=== PATIENT | female | born 1970 ===

== ENCOUNTER 2021-11-13 22:11 | Emergency (ER) | payer BC, OTHER ==
--- OUTSIDE RECORDS SUMMARY | 2021-11-13 22:16 | XMS REPORT | Continuity of Care Document ---
:1970 Author Organization [facility] t Address [address] [place] [address] Care Team Providers Name Role Phone Kelli PIPER, Roxana Kinney Primary Care Physician [phone] Obdulia Hu MA Attending Clinician Unavailable Jesenia Mcnamara MD Attending Clinician Gena Youssef MA Attending Clinician Unavailable Christopher Willams MD Attending Clinician Diana Ríos MA Attending Clinician Unavailable Maureen Corea MA Attending Clinician Unavailable Terrance Marlow MA Attending Clinician Unavailable ARYAN REDDY Attending Clinician Unavailable Lab, Adc Fam Pob I Attending Clinician Unavailable Tristan Hope Attending Clinician TRISTAN KWONG Attending Clinician Unavailable Doctor Unassigned, [place] Attending Clinician Unavailable CHRISTOPHER WILLAMS Admitting Clinician Unavailable Payers Payer Name Policy Type Policy Number Effective Date Expiration Date S ource Problems Condition Condition Condition Status Onset Resolution Last Treating Co mments Source Name Details Category Date Date Treatment Clinician Date Transamina Transamin Disease Active M ethodi se ase 6-13 st elevation. elevation. 00:00: Ho spita CK 344. CK 344. 00 l GGT GGT normal. normal. 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 00:00: Hospita eyes eyes 00 l Colon Colon Disease Active 2021-0 Methodi cancer cancer 3-10 st screening screening 00:00: Hosp crystal 00 l Esophageal Esophageal Disease Active M ethodi dysphagia dysphagia 05-20 00:00: Hospita 00 l Crohn's Crohn's Disease Active Methodi disease of disease of 06 colon colon 00:00: Hospita without without 00 l complicati complicati on on Uveitis of Uveitis of Disease Active M ethodi both eyes both eyes 05-23 st 00:00: Hospita 00 l Pseudomona Pseudomona Disease Active 2017-03 M ethodi s s 1 st infection infection 00:00: Hosp crystal 00 l Keratoconu Keratoconu Disease Active M ethodi s of both s of both 09-20 eyes eyes 00:00: Hospita 00 l Nausea Nausea Disease Active Methodi 09-20 00:00: Hospita 00 l Orthostati Orthostati Disease Active M ethodi c c 04-19 hypotensio hypotensio 00:00: Ho spita n n 00 l Intractabl Intractabl Disease Active 2016-03 M ethodi e migraine e migraine 04-10 with aura with aura 00:00: Hosp crystal without without 00 l status status migrainosu migrainosu s s Memory Memory Disease Active 2016-03 Methodi loss loss 04-10 00:00: Hospita 00 l Altered Altered Disease Active 2016-03 Methodi mental mental 04-10 status status 00:00: Hospita 00 l Other Other Disease Active Methodi spondylosi spondylosi 07-20 s with s with 00:00: Hospita radiculopa radiculopa 00 l thy, thy, lumbar lumbar region region Sacral Sacral Disease Active Methodi back pain back pain 07-20 st 00:00: Hospita 00 l Raynaud's Raynaud's Disease Active Met hodi phenomenon phenomenon 05-05 without without 00:00: Hospita gangrene gangrene 00 l Headache, Headache, Disease Active 2015-03 Met hodi chronic chronic 2-15 st daily daily 00:00: Hospita 00 l Paresthesi Paresthesi Disease Active 2015-03 M ethodi a a 04-27 st 00:00: Hospita 00 l 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 2-15 st 00:00: Hospita 00 l Chronic Chronic Disease Active Methodi diarrhea diarrhea 815 st 00:00: Hospita 00 l Midline Midline Disease Active Methodi low back low back 8-15 st pain pain 00:00: Hospita without without 00 l sciatica sciatica Arthralgia Arthralgia Disease Active M ethodi 815 st 00:00: Hospita 00 l Weight Weight Disease Active Methodi loss loss 815 st 00:00: Hospita 00 l Bilateral Bilateral Disease Active Met hodi conjunctiv conjunctiv 815 st itis itis 00:00: Hospita 00 l Granuloma Granuloma Disease Active Met hodi annulare annulare 815 st 00:00: Hospita 00 l Abdominal Abdominal Disease Active Uni vers pain pain 11-19 ity of 00:00: [place] 00 [facility] Allergies, Adverse Reactions, Alerts Allergy Allergy Status Severity Reaction(s) Onset Inactive Treating Comm ents Source Name Type Date Date Clinician Sulfa Propensi Active 2016-03 Methodi (Sulfona ty to 04-10 st mide adverse 00:00: Hospita Antibiot reaction 00 l ics) s to drug Codeine Propensi Active Swelling Metho di ty to 05-04 st adverse 00:00: Hospita reaction 00 l s to drug Prochlor Propensi Active Rash Method i perazine ty to 15 st adverse 00:00: Hospita reaction 00 l s to drug Penicill Propensi Active Rash Method i ins ty to 15 st adverse 00:00: Hospita reaction 00 l s to drug PENICILL DRUG Active High Swelling Univer s IN INGREDI 11-19 ity of 00:00: [place] 00 [facility] PROCHLOR DRUG Active Hallucinates Un gabi PERAZINE INGREDI 11-19 ity of EDISYLAT 00:00: [place] E 00 Medical Branch SULFA Drug Active Rash Univers (SULFONA Class 11-19 ity of MIDE 00:00: [place] ANTIBIOT 00 Medical ICS) Branch Prochlor Propensi Active Hallucinatio Univers perazine ty to ns 11-19 ity of Edisylat adverse 00:00: [place] e reaction 00 Medical s Branch Penicill Propensi Active Swelling Univ ers in ty to 11-19 ity of adverse 00:00: [place] reaction 00 Medical s Branch Sulfa Propensi Active Rash Univers (Sulfona ty to 11-19 ity of mide adverse 00:00: [place] Antibiot reaction 00 Medica l ics) s Branch Family History Family Member Diagnosis Comments Start Date Stop Date Source Natural father Cancer [facility] Natural father Clotting disorder [facility] Natural father Early [facility] Natural father Seizures [facility] Natural father Vision loss [facility] Maternal COPD [facility] Maternal Heart disease [facility] Maternal Hypertension [facility] Maternal Dementia [facility] Maternal Heart disease [facility] Maternal Stroke [facility] Natural mother Diabetes [facility] Natural mother Miscarriages / Method ist Stillbirths [facility] Paternal Cancer [facility] Paternal Heart disease [facility] Social History Social Habit Start Date Stop Date Quantity Comments Source History of tobacco Current smoker Me [facility]odist use Hospital Exposure to Not sure [facility]-CoV-2 (event) [place] [facility] Alcohol intake 2020-07-22 2020-07-22 Ex-drinker [facility] 00:00:00 00:00:00 (finding) Hospital Cigarettes smoked 2017-02-08 2017-02-[address] current (pack per 00:00:00 00:00:00 Hospita l day) - Reported Cigarette 2017-02-08 2017-02-08 [facility] pack-years 00:00:00 00:00:00 Hospital Alcohol Comment 2017-02-08 2017-02-08 once a month Methodi st 00:00:00 00:00:00 Hospital Tobacco use and 2014-11-19 2014-11-19 Current user Univers ity of exposure 00:00:00 00:00:00 [facility] Sex Ass[birth year] At [birth year] [facility] 00:00:00 00:00:00 Hospital Smoking Status Start Date Stop Date Source Ex-smoker 2017-02-08 00:00:00 2017-02-08 00:00:00 [facility] Current every day 2014-11-19 00:00:00 [facility] [place] smoker Medical Branch Medications Ordered Filled Start Stop Current Ordering Indication Dosage Frequency Signature Comments Components Source Medication Medication Date Date Medication? Clinician (SIG) Name Name modafiniL 2031- Yes [id number] 200mg QD Take 1 Methodi (PROVIGIL) 10-15 08-[address] 200 MG 00:00: 04:59 (200 mg Hospita tablet 00 :00 total) by l mouth every morning. infliximab Yes Infuse Metho di (REMICADE [address] IV) 11:21: venous Hospita 18 catheter. l celecoxib Yes [id number] 200mg Q.5D Take 1 M ethodi (CeleBREX) 07-[address] 200 MG 00:00: (200 mg Hospita capsule 00 total) by l mouth 2 (two) times a day. syringe 2022- No [id number] .6mL Q7D 0.6 mL Met hodi with needle 07-[address] 1 mL 27 x 00:00: 04:59 week. Hospit a /" 00 :00 l syringe folic acid 2022- No [id number] 1mg QD Take 1 Methodi (FOLVITE) 1 07-02- tablet (1 st MG tablet 00:00: 04:59 mg total) Ho spita 00 :00 by mouth l daily. methotrexat 2022- No [id number] 15mg Q7D Inject 0.6 Methodi e PF 25 07-02-23 mL ([address] mg/mL chemo 00:00: 04:59 total) Hos pito syringe 00 :00 under the l skin once a week. 0.6cc SQ Weekly predniSONE 2022- No [id number] TAKE ONE Methodi (DELTASONE) 07-02 03-[address] 5 mg tablet 00:00: 04:59 TABLETS BY Hospita 00 :00 MOUTH l EVERY MORNING DIRECTED DURING OFFICE VISIT modafiniL 2021- No [id number] 200mg QD Take 1 Methodi (PROVIGIL) 07-02-[address] 200 MG 00:00: 00:00 (200 mg Hospita tablet 00 :00 total) by l mouth every morning. modafiniL 2021- No [id number] 200mg QD Take 1 Methodi (PROVIGIL) 07-[address] 200 MG 00:00: 00:00 (200 mg Hospita tablet 00 :00 total) by l mouth every morning. pantoprazol Yes 1 po bid Me thodi e 4-18 st (PROTONIX) 00:00: Hospita 40 MG EC 00 l tablet syringe 2021- No [id number] .6mL Q7D 0.6 mL Met hodi with needle 06-[address] 1 mL 27 x 00:00: 00:00 week. Hospit a 03/14" 00 :00 l syringe folic acid 2021- No [id number] 1mg QD Take 1 Methodi (FOLVITE) 1 06-16 tablet (1 st MG tablet 00:00: 00:00 mg total) Ho spita 00 :00 by mouth l daily. methotrexat 2021- No [id number] 15mg Q7D Inject 0.6 Methodi e PF 25 06-16 mL ([address] mg/mL chemo 00:00: 00:00 total) Hos pito syringe 00 :00 under the l skin once a week. 0.6cc SQ Weekly predniSONE 2021- No [id number] TAKE ONE Methodi (DELTASONE) 06-[address] 5 mg tablet 00:00: 00:00 TABLETS BY Hospita 00 :00 MOUTH l EVERY MORNING DIRECTED DURING OFFICE VISIT modafiniL 2021- No [id number] 200mg QD Take 1 Methodi (PROVIGIL) 06-[address] 200 MG 00:00: 00:00 (200 mg Hospita tablet 00 :00 total) by l mouth every morning. celecoxib 2021- No [id number] 200mg Q.5D Take 1 Methodi (CeleBREX) 06-[address] 200 MG 00:00: 00:00 (200 mg Hospita capsule 00 :00 total) by l mouth 2 (two) times a day. pantoprazol 2021- No 1 po bid M ethodi e 06-09- st (PROTONIX) 00:00: 00:00 Hospit a 40 MG EC 00 :00 l tablet ustekinumab 2021- No INJECT 1 M ethodi (Stelara) 03-15 02-08 ML ([address] 90 mg/mL 00:00: 00:00 TOTAL) Hospit a injection 00 :00 UNDER THE l SKIN EVERY TWO MONTHS diflupredna 2020-03 Yes INSTILL 1 M ethodi te 2-[address] (DUREZOL) 00:00: LEFT EYE Hosp crystal 0.05 % 00 FOUR TIMES l drops DAILY celecoxib 2020-03- No 200mg Q.5D Take 1 Meth sugey (CeleBREX) 04-[address] 200 MG 00:00: 00:00 (200 mg Hospita capsule 00 :00 total) by l mouth 2 (two) times a day. celecoxib 2020-03- No 200mg Q.5D Take 1 Meth sugey (CeleBREX) 04-15- capsule st 200 MG 00:00: 00:00 (200 mg Hospita capsule 00 :00 total) by l mouth 2 (two) times a day. Stelara 90 2020-03- No INJECT 1 Me thodi mg/mL 03-17- ML ([address] injection 00:00: 00:00 TOTAL) Hospi ta 00 :00 UNDER THE l SKIN EVERY TWO MONTHS syringe 2020-03- No .6mL Q7D 0.6 mL Methodi with needle 06-[address] 1 mL 27 x 00:00: 00:00 week. Hospit a /2" 00 :00 l syringe folic acid 2020-03- No [id number] 1mg QD Take 1 Methodi (FOLVITE) 1 0- tablet (1 st MG tablet 00:00: 00:00 mg total) Ho spita 00 :00 by mouth l daily. methotrexat 2020-03- No 15mg Q7D Inject 0.6 Methodi e PF 25 0-20 -29 mL ([address] mg/mL chemo 00:00: 00:00 total) Hos pito syringe 00 :00 under the l skin once a week. 0.6cc SQ Weekly predniSONE 2020-03- No TAKE ONE Me thodi (DELTASONE) 006-[address] 5 mg tablet 00:00: 00:00 TABLETS BY Hospita 00 :00 MOUTH l EVERY MORNING DIRECTED DURING OFFICE VISIT modafiniL 2020-03 No 200mg QD Take 1 Meth sugey (PROVIGIL) 06-[address] 200 MG 00:00: 00:00 (200 mg Hospita tablet 00 :00 total) by l mouth every morning. prednisoLON 2020-03- No prednisolo Methodi E acetate 04-[address] (PRED 00:00: 00:00 1 % eye Hospita FORTE) 1 % 00 :00 drops,susp l ophthalmic ension suspension celecoxib 2020-03 No 200mg Q.5D Take 1 Meth sugey (CeleBREX) 02-[address] 200 MG 00:00: 00:00 (200 mg Hospita capsule 00 :00 total) by l mouth 2 (two) times a day. ustekinumab 2020-03- No 90mg Inject 1 M ethodi (Stelara) 11-05 mL ([address] 90 mg/mL 00:00: 00:00 total) Hospit a injection 00 :00 under the l skin Every 2 months. pantoprazol 2020-03- No 1 po bid M ethodi e 006-08 st (PROTONIX) 00:00: 00:00 Hospit a 40 MG EC 00 :00 l tablet modafiniL 2020- No 200mg QD Take 1 Meth sugey (PROVIGIL) 07-14-[address] 200 MG 00:00: 00:00 (200 mg Hospita tablet 00 :00 total) by l mouth every morning. ustekinumab 2020- No 90mg Inject 1 M ethodi (Stelara) 07-14 10-09 mL ([address] 90 mg/mL 00:00: 00:00 total) Hospit a injection 00 :00 under the l skin Every 2 months. syringe 2020- No .6mL Q7D 0.6 mL Methodi with needle 07-14- once a st 1 mL 27 x 00:00: 00:00 week. Hospit a /2" 00 :00 l syringe folic acid 2020- No [id number] 1mg QD Take 1 Methodi (FOLVITE) 1 07-14 tablet (1 st MG tablet 00:00: 00:00 mg total) Ho spita 00 :00 by mouth l daily. methotrexat 2020- No 15mg Q7D Inject 0.6 Methodi e PF 25 07-14 mL ([address] mg/mL chemo 00:00: 00:00 total) Hos pito syringe 00 :00 under the l skin once a week. 0.6cc SQ Weekly celecoxib 2020- No 200mg Q.5D Take 1 Meth sugey (CeleBREX) 07-[address] 200 MG 00:00: 00:00 (200 mg Hospita capsule 00 :00 total) by l mouth 2 (two) times a day. predniSONE 2020- No TAKE ONE Me thodi (DELTASONE) 07-[address] 5 mg tablet 00:00: 00:00 TABLETS BY Hospita 00 :00 MOUTH l EVERY MORNING DIRECTED DURING OFFICE VISIT pantoprazol 2020- No 1 po bid M ethodi e 3-10 12-19 st (PROTONIX) 00:00: 00:00 Hospit a 40 MG EC 00 :00 l tablet prednisoLON 2020- No prednisolo Methodi E acetate 212-[address] (PRED 00:00: 00:00 1 % eye Hospita FORTE) 1 % 00 :00 drops,susp l ophthalmic ension suspension No known No [facility] medications [facility] No known No Univers medications [facility] Immunizations Ordered Immunization Filled Immunization Date Status Commen ts Source Name Name PFIZER COVID-19 MRNA 2020-07-15 Completed Meth odist VACCINATION 00:00:00 [facility] PFIZER COVID-19 MRNA 2020-06-24 Completed Meth odist VACCINATION 00:00:00 Hospital Vital Signs Vital Name Observation Time Observation Value Comments Source Systolic blood 2021-08-18 16:17:00 122 mm[Hg] Method ist Hospital pressure Diastolic blood 2021-08-18 16:17:00 85 mm[Hg] Metho dist Hospital pressure Heart rate 2021-08-18 16:17:00 82 /min [facility] Body height 2021-08-18 16:17:00 170.2 cm [facility] Body weight 2021-08-18 16:17:00 64.014 kg [facility] BMI 2021-08-18 16:17:00 22.10 kg/m2 [facility] Oxygen saturation in 2021-08-18 16:17:00 100 /min [facility] Arterial blood by Pulse oximetry Procedures Procedure Date / Time Performing Clinician Source Performed CBC WITH PLATELET AND 2021-08-18 17:03:00 [facility] DIFFERENTIAL COMPREHENSIVE METABOLIC 2021-08-18 17:03:00 [facility] PANEL SEDIMENTATION RATE 2021-08-18 17:03:00 [facility] C-REACTIVE PROTEIN 2021-08-18 17:03:00 [facility] GGT 2021-08-18 17:03:00 [facility] spital CREATINE KINASE, TOTAL 2021-08-18 17:03:00 [facility] ([facility]) SPECIMEN STATUS REPORT 2021-08-18 17:03:00 [facility] URINE CULTURE 2021-04-20 16:01:00 [facility] spital CBC WITH PLATELET AND 2021-04-20 16:01:00 [facility] DIFFERENTIAL COMPREHENSIVE METABOLIC 2021-04-20 16:01:00 [facility] PANEL SEDIMENTATION RATE 2021-04-20 16:01:00 [facility] C-REACTIVE PROTEIN 2021-04-20 16:01:00 [facility] URINALYSIS, AUTOMATED 2021-04-20 16:01:00 [facility] WITH MICROSCOPY MICROSCOPIC EXAMINATION 2021-04-20 16:01:00 [facility] QUANTIFERON-TB GOLD 2021-02-17 22:03:00 [facility] PLUS HEPATITIS B SURFACE 2021-02-17 22:03:00 [facility] ANTIGEN HEPATITIS B CORE ANTIBODY 2021-02-17 22:03:[address] [facility] TOTAL HEPATITIS C ANTIBODY 2021-02-17 22:03:[address] [facility] QUANTIFERON-TB GOLD PLUS 2021-02-17 22:03:00 Jesenia Mcnamara [facility] Plan of Care Planned Activity Planned Date Details Comments Source Future Scheduled 2021-11-11 HEPATITIS B VACCINES [facility] Test 07:46:49 (1 of 3 - 3-dose series) [code = HEPATITIS B VACCINES (1 of 3 - 3-dose series)] Future Scheduled 2021-11-11 Pneumococcal Vaccine: [facility] Test 07:46:49 Pediatrics (0 to 5 Years) and At-Risk Patients (6 to 64 Years) (1 - PCV) [code = Pneumococcal Vaccine: Pediatrics (0 to 5 Years) and At-Risk Patients (6 to 64 Years) (1 - PCV)] Future Scheduled 2021-11-11 Screening for [facility] Test 07:46:49 malignant neoplasm of cervix (procedure) [code = 360314972] Future Scheduled 2021-11-11 BREAST CANCER [facility] Test 07:46:49 SCREENING [code = BREAST CANCER SCREENING] Future Scheduled 2021-11-[address] [facility] Test 07:46:49 [code = COLONOSCOPY SCREENING] Future Scheduled 2021-11-11 COVID-19 VACCINE (3 - [facility] Test 07:46:49 Pfizer risk series) [code = COVID-19 VACCINE (3 - Pfizer risk series)] Future Scheduled 2021-11-11 INFLUENZA VACCINE [facility] Test 07:46:49 [code = INFLUENZA VACCINE] Encounters Start End Encounter Admission Attending Care Care Encounter Source Date/Time Date/Time Type Type Clinicians Facility Department ID 2021-10-15 2021-10-15 Telephone Fritz 1.2.840.1 [id number] Methodi 00:00:00 00:00:[address] 3.430.2.7 Hospit a .3.401641 l .8 2021-09-21 2021-09-21 Documentat Fritz 1.2.840.1 [id number] Methodi 00:00:00 00:00:00 [address]ia 91267.1.[address] 3.430.2.7 Hospit a .3.186950 l .8 2021-09-01 2021-09-01 Telephone Naima, 1.2.840.1 [id number] Methodi 00:00:00 00:00:[address] 3.430.2.7 Hospit a .3.614524 l .8 2021-08-23 2021-08-23 Orders Naima, 1.2.840.1 [id number] Methodi 00:00:00 00:00:00 Only Jesenia 40481.1.[address] 3.430.2.7 Hospit a .3.843438 l .8 2021-08-18 2021-08-18 Office Naima, 1.2.840.1 [id number] Methodi 11:00:00 11:56:06 Visit Jesenia 21453.1.[address] 3.430.2.7 Hospit a .3.489416 l .8 2021-08-18 2021-08-18 Outpatient NAIMA, [facility] [id number] [address] [place] [address] 00:00:00 00:00:[address] JESENIA [address] 2021-08-18 2021-08-18 Documentat [place], 1.2.840.1 [id number] Methodi 00:00:00 00:00:00 ion Gena [address]382.1.[address] 3.430.2.7 Hospit a .3.436741 l .8 2021-08-18 2021-08-18 Travel 1.2.840.1 1.2.274.960 [id number] Methodi 00:00:00 00:00:[address] 3.430.2.7 0.2.7.3.698 Ho spita .3.727515 084.8 l .8 2021-07-02 2021-07-02 Orders Naima, 1.2.840.1 [id number] Methodi 00:00:00 00:00:00 Only Jesenia 81076.1.[address] 3.430.2.7 Hospit a .3.329832 l .8 2021-06-24 2021-06-24 Refill Willams, 1.2.840.1 [id number] Methodi 00:00:00 00:00:00 Christopher Edy 90087.1.1 896 s t 3.430.2.7 Hospit a .3.435857 l .8 2021-06-24 2021-06-24 Refill Naima, 1.2.840.1 [id number] Methodi 00:00:00 00:00:[address] 3.430.2.7 Hospit a .3.621850 l .8 2021-06-08 2021-06-08 Refill Willams, 1.2.840.1 [id number] Methodi 00:00:00 00:00:00 Christopher Edy 85241.1.1 056 s t 3.430.2.7 Hospit a .3.897654 l .8 2021-06-08 2021-06-08 Refill Naima, 1.2.840.1 [id number] Methodi 00:00:00 00:00:[address] 3.430.2.7 Hospit a .3.821187 l .8 2021-04-20 2021-04-20 Office Naima, 1.2.840.1 [id number] Methodi 09:20:00 10:27:52 Visit Jesenia 77161.1.[address] 3.430.2.7 Hospit a .3.575148 l .8 2021-04-20 2021-04-20 Outpatient NAIMA, [facility] [id number] [address] [place] [address] 00:00:00 00:00:[address]ES[address]IA [address] 2021-04-20 2021-04-20 Travel 1.2.840.1 1.2.735.458 [id number] Methodi 00:00:00 00:00:[address] 3.430.2.7 0.2.7.3.698 Ho spita .3.371454 084.8 l .8 2021-04-02 2021-04-02 Documentat [place], Diana 1.2.840.1 [id number] Methodi 00:00:00 00:00:[address] 3.430.2.7 Hospit a .3.654277 l .8 2021-03-23 2021-03-23 Documentat Naima, 1.2.840.1 [id number] Methodi 00:00:00 00:00:00 ion Jesenia 21084.1.[address] 3.430.2.7 Hospit a .3.969338 l .8 2021-03-19 2021-03-19 Documentat [place], Diana 1.2.840.1 [id number] Methodi 00:00:00 00:00:[address] 3.430.2.7 Hospit a .3.949784 l .8 2021-03-18 2021-03-18 Telephone MichoacanoMatt leachi 1.2.840.1 [id number] Methodi 00:00:00 00:00:[address] 3.430.2.7 Hospit a .3.652642 l .8 2021-03-16 2021-03-16 Telemedici Naima 1.2.840.1 [id number] Methodi 11:00:00 11:06:43 ne Jesenia 88569.1.[address] 3.430.2.7 Hospit a .3.675872 l .8 2021-03-16 2021-03-16 [id number] [address] [place] 00:00:00 00:00:00 JESENIA [address] 2021-03-15 2021-03-15 Telephone Diana Ríos 1.2.840.1 [id number] Methodi 00:00:00 00:00:[address] 3.430.2.7 Hospit a .3.550942 l .8 2021-03-15 2021-03-15 Refill Diana Ríos 1.2.840.1 [id number] Methodi 00:00:00 00:00:[address] 3.430.2.7 Hospit a .3.765154 l .8 2021-02-25 2021-02-25 Documentat Nahomy, 1.2.840.1 [id number] Methodi 00:00:00 00:00:00 ion [address]ureen [address]6416.1.[address] 3.430.2.7 Hospit a .3.958850 l .8 2021-02-12 2021-02-12 Refill Diana Ríos 1.2.840.1 [id number] Methodi 00:00:00 00:00:[address] 3.430.2.7 Hospit a .3.203846 l .8 2021-02-11 2021-02-11 Orders Naima, 1.2.840.1 [id number] Methodi 00:00:00 00:00:00 Only Jesenia 26296.1.[address] 3.430.2.7 Hospit a .3.822778 l .8 2021-01-29 2021-01-29 Telephone Diana Ríos 1.2.840.1 [id number] Methodi 00:00:00 00:00:[address] 3.430.2.7 Hospit a .3.704772 l .8 2021-01-15 2021-01-15 Refill Naima, 1.2.840.1 [id number] Methodi 00:00:00 00:00:[address] 3.430.2.7 Hospit a .3.521875 l .8 2020-12-30 2020-12-30 Telephone Sole, 1.2.840.1 [id number] Methodi 00:00:00 00:00:00 Terrance De Guzman 74745.1.[address] 3.430.2.7 Hospit a .3.808936 l .8 2020-12-19 2020-12-19 Refill Imer, 1.2.840.1 [id number] Methodi 00:00:00 00:00:00 Christopher Snow 82875.1.1 580 s t 3.430.2.7 Hospit a .3.836707 l .8 2020-12-19 2020-12-19 Refill Naima, 1.2.840.1 [id number] Methodi 00:00:00 00:00:[address] 3.430.2.7 Hospit a .3.921996 l .8 2020-07-29 2020-07-29 Outpatient NAIMA, [facility] [id number] [address] [place] 00:00:00 00:00:00 JESENIA 236 Method i 2020-07-15 2020-07-15 Outpatient MAUREEN, [facility] [id number] [address] [place] 00:00:00 00:00:00 ARYAN 733 [address] thodi 2020-07-02 2020-07-02 Outpatient WILLAMS, [facility] 021 [id number] [place] 00:00:00 00:00:00 CHRISTOPHER 605 Method i 2020-06-29 2020-06-29 Laboratory Lab, Adc Fam Pob I [facility] 1.2. 840.114 [id number] Univers 17:46:45 18:06:45 Only Tristan Kwong [facility] 350.1.13.10 anya mishra [place] 4.2.7.2.686 Frank as [place] [id number] [address] Office Building One 2020-06-29 2020-06-29 Outpatient R MATTHEW [facility] [id number] [facility] 17:40:00 17:40:00 TRISTAN solano [facility] 2020-06-29 2020-06-29 Letter Doctor RODRIGUEZ [id number] [id number] [employer] 00:00:00 00:00:00 (Out) Unassigned, MAURY [id number] ity [place] [facility] [id number] Frank as [phone] [address] 2020-06-29 2020-06-29 Letter Doctor RODRIGUEZ [id number] [facility] 00:00:00 00:00:00 (Out) Unassigned, MAURY [id number] ity [place] [facility] [id number] Frank as [id number] [address] 2020-06-24 2020-06-24 Outpatient [facility] [id number] 120 [place] 00:00:00 00:00:[address] 2020-05-29 2020-05-29 [facility] [id number] [place] 00:00:00 00:00:00 CHRISTOPHER [address] 2020-05-20 2020-05-20 Outpatient WILLAMS, [facility] [id number] [place] 00:00:00 00:00:00 CHRISTOPHER [address] 2020-04-30 2020-04-30 Outpatient NAIMA, [facility] [id number] 312 [place] 00:00:00 00:00:00 JESENIA [address] 2019-10-23 2019-10-23 Outpatient [facility] [id number] 220 [place] 00:00:00 00:00:00 JESENIA [address] 2019-07-17 2019-07-17 [facility] [id number] 107 [place] 00:00:00 00:00:00 JESENIA [address] Results Test Description Test Time Test Comments Results Result Comments Source Specimen Status Report 2021-08-24 18:10:00 Test Item Value Reference Range Interpretation Comme nts Specimen Status Report COMMENT Estela en AuthorizationWritten (test code = 3285) Authorkaty tionWritten Authorization Received.Author ization received from OBDULIA DEUTSCH [id number] by Annamaria TREVINO (test code = URIEL) Performed at: 01 - [address] [id number] Director: Everardo Mitchell MD, Phone: [phone] [facility] (CPK)2021-08-21 14:09:00 Test Item Value Reference Range Interpretation Comments Creatine kinase (test 322 U/L 32-182 H code = 2157-6) URIEL (test code = URIEL) Performed at: - [address] [id number] Director: Everardo Mitchell MD, Phone: [phone] Lab Interpretation (test Abnormal code = 34274-2) [facility]2022-06-11 14:09:00 Test Item Value Reference Range Interpretation Comments GGT (test code See_Comment [Automated m essage] = 5284-2) The system [employer] generated this result transmit eduin reference range : 0 - 60 IU/L. The reference range was not used to interpret this result as normal/abnormal . URIEL (test code Performed at: - = URIEL) [address] [id number] Director: Everardo Mitchell MD, Phone: [phone] [facility] Center[facility]-reactive [id number] 16:10:00 Test Item Value Reference Range Interpretation Comments CRP (test code = 1 mg/L 0-10 1987-) URIEL (test code = Performed at: URIEL) [address] [id number] Director: Everardo Mitchell MD, Phone: [phone] [facility] CenterComprehensive metabolic [id number] 14:11:00 Test Item Value Reference Range Interpretation Comments Glucose (test code = 95 mg/dL 65-99 2345-7) BUN (test code = 11 mg/dL 6-24 3094-0) Creatinine (test code 0.81 mg/dL 0.57-1 = 2160-0) eGFR (test code = 89 mL/min/1.73 See_Comment [Automa eduin 8200) message] The system which generated this result transmitted reference range : >=59. The reference range was not used to interpret this result as normal/abnormal . BUN/creatinine ratio 9-23 (test code = 3097-3) Sodium (test code = 143 mmol/L 253-952 9932-2) Potassium (test code 4.1 mmol/L 3.5-5.2 = 2823-3) Chloride (test code = 105 mmol/L 96-106 2074-0) CO2 (test code = 24 mmol/L 20-29 2027-9) Calcium (test code = 9.2 mg/dL 8.7-10.2 78913-3) Protein (test code = 7.1 g/dL 6-8.5 2885-2) Albumin, S (test code 4.4 g/dL 3.8-4.8 = 1751-7) Globulin, total (test 2.7 g/dL 1.5-4.5 code = 76135-4) Albumin/globulin 1.2-2.2 ratio (test code = 1759-0) Total bilirubin (test 0.4 mg/dL 0-1.2 code = 1974-2) Alkaline phosphatase See_Comment [Autom ated (test code = 6768-6) message ] The system which generated this result transmitted reference range : 44 - 121 IU/L. The reference range was not used to interpr et this result as normal/abnormal . AST (test code = See_Comment H [Automated 1919-8) message] The system which generated this result transmitted reference range : 0 - 40 IU/L. Th e reference range was not used to interpret this result as normal/abnormal . ALT (test code = See_Comment H [Automated 1741-6) message] The system which generated this result transmitted reference range : 0 - 32 IU/L. Th e reference range was not used to interpret this result as normal/abnormal . URIEL (test code = URIEL) Performed at: [facility] [id number] Director: Everardo Mitchell MD, Phone: [phone] Lab Interpretation Abnormal (test code = 39424-8) [facility] with platelet and [id number] 14:11:00 Test Item Value Reference Range Interpretation Comments WBC (test code = See_Comment [Automated 7690-2) message] The system which generated this result transmit eduin reference range : 3.4 - 10.8 x10E3/uL. The reference range was not used to interpret this result as normal/abnormal . RBC (test code = See_Comment [Automated 789-8) message] The system which generated this result transmit eduin reference range : 3.77 - 5.28 x10E6/uL. The reference range was not used to interpret this result as normal/abnormal . HGB (test code = 14.0 g/dL 11.1-15.9 718-7) HCT (test code = 41.1 % 34-46.6 4544-3) MCV (test code = 92 fL 79-97 787-2) MCH (test code = 31.4 pg 26.6-33 785-6) MCHC (test code = 34.1 g/dL 31.5-35.7 786-4) RDW (test code = 13.0 % 11.7-15.4 788-0) Platelet count See_Comment [Automated (test code = 777-3) message] The system which generated this result transmit eduin reference range : 150 - 450 x10E3/uL. The reference range was not used to interpret this result as normal/abnormal . Neutrophils (test 50 % Not Estab. code = 770-8) Lymphocytes (test 40 % Not Estab. code = 736-9) Monocytes (test 8 % Not Estab. code = 5905-5) Eosinophils (test 1 % Not Estab. code = 713-8) Basophils (test 1 % Not Estab. code = 706-2) Neutrophils, See_Comment [Automated absolute (test code message] The = 751-8) system which generated this result transmit eduin reference range : 1.4 - 7.0 x10E3/uL. The reference range was not used to interpret this result as normal/abnormal . Lymphocytes, See_Comment [Automated absolute (test code message] The = 731-0) system which generated this result transmit eduin reference range : 0.7 - 3.1 x10E3/uL. The reference range was not used to interpret this result as normal/abnormal . Monocytes, absolute See_Comment [Automa eduin (test code = 742-7) message] The system which generated this result transmit eduin reference range : 0.1 - 0.9 x10E3/uL. The reference range was not used to interpret this result as normal/abnormal . Eosinophils, See_Comment [Automated absolute (test code message] The = 711-2) system which generated this result transmit eduin reference range : 0.0 - 0.4 x10E3/uL. The reference range was not used to interpret this result as normal/abnormal . Basophils, absolute See_Comment [Automa eduin (test code = 704-7) message] The system which generated this result transmit eduin reference range : 0.0 - 0.2 x10E3/uL. The reference range was not used to interpret this result as normal/abnormal . Immature 0 % Not Estab. granulocytes (test code = 42475-1) Immature See_Comment [Automated granulocytes, message] The absolute (test code system w [facility] = 79911-4) generated this result transmit eduin reference range : 0.0 - 0.1 x10E3/uL. The reference range was not used to interpret this result as normal/abnormal . URIEL (test code = Performed at: URIEL) - [address] [id number] Director: Everardo Mitchell MD, Phone: [phone] [facility] Corporationedimentation [id number] 14:11:00 Test Item Value Reference Range Interpretation Comments Sedimentation rate See_Comment [Automat ed (test code = 4537-7) message ] The system which generated this result transmitted reference range : 0 - 32 mm/hr. T he reference range was not used to interpret this result as normal/abnormal . URIEL (test code = Performed at: URIEL) - [address] [id number] Director: Everardo Mitchell MD, Phone: [phone] [facility] CenterUrine [id number] 11:11:00 Test Item Value Reference Range Interpretation Comments Urine culture (test No growth code = 630-4) URIEL (test code = URIEL) Performed at: - [address] [id number] Director: Everardo Mitchell MD, Phone: [phone] [facility] CenterUrinalysis, automated with [id number] 11:11:00 Test Item Value Reference Range Interpretation Comments Specific gravity, 1.005-1.03 urine (test code = 5811-5) pH, urine (test code 5-7.5 = 5803-2) Color, UA (test code Yellow Yellow = 5778-6) Appearance (test code Clear Clear = 5767-9) WBC esterase, urine Trace Negative A (test code = 5799-2) Protein, UA (test Negative Negative/Trace code = 22397-6) Glucose, urine (test Negative Negative code = 61015-1) Ketones, UA (test Negative Negative code = 2514-8) Occult blood, urine Negative Negative (test code = 5794-3) Bilirubin, UA (test Negative Negative code = 5770-3) Urobilinogen, UA 0.2 mg/dL 0.2-1 (test code = 96253-5) Nitrite, UA (test Negative Negative code = 5802-4) Microscopic See below: Microscopic was examination (test indicated and was code = 15231-5) performed. URIEL (test code = URIEL) Performed at: [facility] [id number] Director: Everardo Mitchell MD, Phone: [phone] Lab Interpretation Abnormal (test code = 09090-8) [facility] [id number] 11:11:00 Test Item Value Reference Range Interpretation Comments WBC, UA (test code 0-5 See_Comment [Automat ed = 5821-4) message] The system which generated this result transmit eduin reference range : 0 - 5 /hpf. The reference range was not used to interpret this result as normal/abnormal . RBC, UA (test code None seen See_Comment [Automat ed = 80223-9) message] The system which generated this result transmit eduin reference range : 0 - 2 /hpf. The reference range was not used to interpret this result as normal/abnormal . Epithelial cells 0-10 See_Comment [Automated (non renal) (test message] T he code = 5787-7) system which generated this result transmit eduin reference range : 0 - 10 /hpf. The reference range was not used to interpret this result as normal/abnormal . Casts (test code = None seen None seen /lpf 36080-4) Bacteria, UA (test None seen None seen/Few code = 5769-5) URIEL (test code = Performed at: URIEL) [facility] [address] [id number] Director: Everardo Mitchell MD, Phone: [phone] [facility] CenterQuantiFERON-TB Gold [id number] 15:08:00 Test Item Value Reference Range Interpretation Comments QuantiFERON Incubation Incubation (test performed. code = 5936) Quantiferon TB Negative Negative Chemiluminesc ence gold plus (test immunoassay code = 12809-1) methodology URIEL (test code = Performed at: URIEL) - [address] [id number] Director: Everardo Mitchell MD, Phone: [phone] med at: 02 - [facility] [id number] Director: Dipak Iniguez MD, Phone: [phone] [facility] CenterQuantiFERON-TB Gold Sevf2009-04-25 15:08:00 Test Item Value Reference Range Interpretation Comments Quantiferon Comment The QuantiFERON -TB criteria (test Gold Plus res ult is code = 8251-1) determined by subtractingthe Nil value from eith er TB antigen (Ag) tu be. The mitogen tubeserves as a control for the test. QuantiFERON TB1 Ag IU/mL Value (test code = 53959-2) QuantiFERON TB2 Ag IU/mL Value (test code = 5942) Quantiferon NIL IU/mL value (test code = 18664-7) Quantiferon >10.00 IU/mL mitogen value (test code = 90408-5) URIEL (test code = Performed at: 02 URIEL) - [address] [id number] Director: Dipak Iniguez MD, Phone: [phone] [facility] B surface [id number] 15:11:00 Test Item Value Reference Range Interpretation Comments Hepatitis B surface Ag Negative Negative (test code = 5196-1) URIEL (test code = URIEL) Performed at: 01 - [address] [id number] Director: Everardo Mitchell MD, Phone: [phone] [facility] B core antibody [id number] 15:11:00 Test Item Value Reference Range Interpretation Comments Hepatitis B core total Negative Negative Ab (test code = 40843-4) URIEL (test code = URIEL) Performed at: 01 - [address] [id number] Director: Everardo Mitchell MD, Phone: [phone] [facility] CenterHepatitis C [id number] 15:11:00 Test Item Value Reference Range Interpretation Comments Hepatitis C Ab <0.1 See_Comment Negative: < 0.8 (test code = Indeterminate: 0.8 - 71837-1) 0.9 Positive: > 0.9 The CDC recomme nds that a positive HCV antibody result be followed up wit h a HCV Nucleic Aci d Amplification t est (604817). [Auto mated message] The sy stem which generated this result transmit eduin reference range : 0.0 - 0.9 s/co rati o. The reference r tim was not used to interpret this result as normal/abnormal . URIEL (test code = Performed at: URIEL) - [facility] [id number] Director: Everardo Mitchell MD, Phone: [phone] [facility]
[2021-11-13 22:56] LABS: Absolute Lymphocytes (CBC) 3.6 K/uL (0.7-4.9); Hematocrit 40.3 % (36.0-45.0); Lymphocytes % 30.6 % (15.3-44.8); MCV 90.6 fL (80-100); MPV 8.1 fL (7.6-11.3); RBC Red Blood Cell Count 4.45 M/uL (3.86-4.86)
[2021-11-13] MEDS ORDERED: ONDANSETRON 4 MG/2 ML VIAL ONE (23:10)
[2021-11-13] MEDS ORDERED: NA CHLORIDE 0.9% 1,000 ML ONE (23:10)
[2021-11-13] MEDS ORDERED: FENTANYL CITR 100 MCG/2 ML ONE (23:10)
[2021-11-13 23:19] LABS: Albumin 3.3 g/dL (3.4-5.0); Bilirubin Total 0.6 mg/dL (0.2-1.0); Potassium 3.5 mmol/L (3.5-5.1); Protein, Total 7.2 g/dL (6.4-8.2)
--- NOTE | 2021-11-14 00:42 | ER ---
Nurse's Notes [facility] Name: Josette De Los Santos Age: 50 yrs Sex: Female : 1970 Arrival Date: 11/13/2021 Time: 22:14 Bed 19 Private MD: Diagnosis: Diverticulitis of intestine, part unspecified, without perforation or abscess without bleeding Presentation: 11/13 22:19 Chief complaint: Patient states: abdominal pain began x 2 days gradually increasing kl reports has history of Chrohns and recent change in medication. Coronavirus screen: Vaccine status: Patient reports receiving the 2nd dose of the covid vaccine. Ebola Screen: Patient negative for fever greater than or equal to 101.5 degrees Fahrenheit, and additional compatible Ebola Virus Disease symptoms. Initial Sepsis Screen: Does the patient meet any 2 criteria? No. Patient's initial sepsis screen is negative. Does the patient have a suspected source of infection? No. Patient's initial sepsis screen is negative. Risk Assessment: Do you want to hurt yourself or someone else? Patient reports no desire to harm self or others. Onset of symptoms was November 11, 2021. 22:19 Method Of Arrival: Ambulatory kl 22:19 Acuity: SAIMA 3 kl Triage Assessment: 22:24 General: Appears distressed, comfortable, well groomed, unkempt, Behavior is anxious. kl Pain: Complains of pain in abdomen. GI: Reports lower abdominal pain, upper abdominal pain, bloating, nausea. 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 - Social history:: Smoking status: unknown. Screenin:41 Abuse screen: Denies threats or abuse. Denies injuries from another. Nutritional kd3 screening: No deficits noted. Tuberculosis screening: No symptoms or risk factors identified. Fall Risk IV access (20 points). Assessment: 22:47 General: CT called, extra green top at the bedside.. tw5 23:40 General: Appears uncomfortable, Behavior is cooperative. General: Behavior is crying. kd3 Neuro: Level of Consciousness is awake, alert, obeys commands, Oriented to person, place, time, situation. Respiratory: Airway is patent Trachea midline. 23:41 GI: Bowel sounds present X 4 quads. Abdomen is tender to palpation in abdomen. kd3 11/14 00:25 Reassessment: Patient and/or family updated on plan of care and expected duration. Pain kd3 level reassessed. Patient is alert, oriented x 3, equal unlabored respirations, skin warm/dry/pink. Patient states feeling better. Patient states symptoms have improved. General:. Vital Signs: 11/13 22:19 BP 121 / 81; Pulse 84; Resp 18; Temp 68(TE); Pulse Ox 99% ; Pain 8/10; kl 22:32 Temp 98(TE); kl 11/14 01:27 BP 113 / 84; Pulse 66; Resp 17; Pulse Ox 96% on R/A; ja4 ED Course: 11/13 22:14 Patient arrived in ED. bp1 22:21 Triage completed. kl 22:30 Hannah Forbes FNP-C [facility]. kb 22:30 Darian Tomas MD is Attending Physician. kb 22:34 Lissette Hooper RN is Primary Nurse. kd3 22:47 Initial lab(s) drawn, by mi, sent to lab. Inserted saline lock: 20 gauge in right tw5 antecubital area, using aseptic technique. Blood collected. 22:47 CBC with Diff Sent. tw5 22:47 CMP Sent. tw5 22:47 Lipase Sent. tw5 23:41 No provider procedures requiring assistance completed. kd3 23:41 Patient has correct armband on for positive identification. kd3 23:41 Arm band placed on right wrist. kd3 11/14 00:15 CT Abd/Pelvis - IV Contrast Only In Process Unspecified. EDMS 01:27 IV discontinued, intact, bleeding controlled, No redness/swelling at site. Pressure ja4 dressing applied. Administered Medications: 11/13 23:39 Drug: Zofran (Ondansetron) 4 mg Route: IVP; Site: right antecubital; kd3 23:39 Drug: fentaNYL (PF) 50 mcg Route: IVP; Site: right antecubital; kd3 23:39 Drug: NS 0.9% 1000 ml Route: IV; Rate: 1000 ml; Site: right antecubital; kd3 11/14 01:29 Drug: fentaNYL (PF) 50 mcg Route: IVP; Site: right antecubital; ja4 01:29 Drug: Cipro (ciprofloxacin) 500 mg Route: PO; ja4 01:32 Follow up: Response: No adverse reaction kd3 01:29 Drug: Flagyl (metroNIDAZOLE) 500 mg Route: PO; ja4 01:32 Follow up: Response: No adverse reaction kd3 Medication: 11/13 23:42 VIS not applicable for this client. kd3 Outcome: 11/14 00:42 Discharge ordered by . kb 01:27 Discharged to home ambulatory. ja4 01:27 Condition: stable 01:27 Discharge instructions given to patient, family, Instructed on discharge instructions, follow up and referral plans. medication usage, Demonstrated understanding of instructions, follow-up care, medications, Prescriptions given X 3. 01:34 Patient left the ED. ja4 Signatures: Dispatcher [employer] EDMS Hannah Forbes, ALPHONSO-C DONKEY DOCTOR-Ayaka Willard, Dunia Milian RN, Tiffany twLissette Mcdonough RN RN kd3 Lee Frank RN RN ja4
--- NOTE | 2021-11-14 00:42 | EDPHYS ---
Physician Documentation [facility] Name: Josette De Los Santos Age: 50 yrs Sex: Female : 1970 Arrival Date: 11/13/2021 Time: 22:14 Bed 19 Private MD: KIANA Physician Darian Tomas HPI: 11/13 23:44 This 50 yrs old Female presents to ER via Ambulatory with complaints of Abdominal Pain. kb 23:44 The patient presents with abdominal pain in the right upper quadrant, right lower kb quadrant. Onset: The symptoms/episode began/occurred 3 day(s) ago. The symptoms do not radiate. Associated signs and symptoms: Pertinent positives: nausea. The symptoms are described as constant. Modifying factors: The symptoms are alleviated by nothing, the symptoms are aggravated by pressure. Severity of pain: At its worst the pain was moderate severe in the emergency department the pain is unchanged. The patient has experienced similar episodes in the past, but today's symptoms are worse, more painful. The patient has not recently seen a physician. Pt reports right sided abd pain that started 3 days ago and has progressively gotten worse. Reports nausea, no vomiting. States she has had diarrhea since starting rimicade 6 months ago, but hasn't had a BM today which is abnormal for her. 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 - Social history:: Smoking status: unknown. ROS: 23:43 Constitutional: Negative for fever, chills, and weight loss. kb 23:43 Abdomen/GI: Positive for abdominal pain, nausea, Negative for vomiting. 23:43 All other systems are negative. Exam: 23:43 Constitutional: This is a well developed, well nourished patient who is awake, alert, kb and in no acute distress. Head/Face: Normocephalic, atraumatic. ENT: Moist Mucous membranes Cardiovascular: Regular rate and rhythm with a normal S1 and S2. No gallops, murmurs, or rubs. No pulse deficits. Respiratory: Respirations even and unlabored. No increased work of breathing. Talking in full sentences Skin: Warm, dry with normal turgor. Normal color. MS/ Extremity: Pulses equal, no cyanosis. Neurovascular intact. Full, normal range of motion. Neuro: Awake and alert, GCS 15, oriented to person, place, time, and situation. Moves all extremities. Normal gait. Psych: Awake, alert, with orientation to person, place and time. Behavior, mood, and affect are within normal limits. 23:43 Abdomen/GI: Inspection: abdomen appears normal, Bowel sounds: normal, Palpation: severe abdominal tenderness, in all quadrants. Vital Signs: 22:19 BP 121 / 81; Pulse 84; Resp 18; Temp 68(TE); Pulse Ox 99% ; Pain 8/10; kl 22:32 Temp 98(TE); kl 11/14 01:27 BP 113 / 84; Pulse 66; Resp 17; Pulse Ox 96% on R/A; ja4 MDM: 11/13 22:30 Patient medically screened. kb 23:44 Data reviewed: vital signs, nurses notes. Data interpreted: Pulse oximetry: on room air kb is 99 %. Interpretation: normal. 11/14 00:39 Counseling: I had a detailed discussion with the patient and/or guardian regarding: the kb historical points, exam findings, and any diagnostic results supporting the discharge/admit diagnosis, lab results, radiology results, the need for outpatient follow up, a family practitioner, to return to the emergency department if symptoms worsen or persist or if there are any questions or concerns that arise at home. ED course: Discussed admission vs outpatient treatment with pt. Pt does not want to be admitted. Will return for worsening symptoms, inability to tolerate medications or any other concerns. . 11/13 22:30 Order name: CBC with Diff; Complete Time: 23:03 kb 11/13 22:30 Order name: CMP; Complete Time: 23:29 kb 11/13 22:30 Order name: Lipase; Complete Time: 23:29 kb 11/13 22:44 Order name: CT Abd/Pelvis - IV Contrast Only kb 11/14 01:01 Order name: CREATININE WHOLE BLOOD EDMS 11/13 22:30 Order name: IV Saline Lock; Complete Time: 22:47 kb 11/13 22:30 Order name: Labs collected and sent; Complete Time: 22:47 kb Administered Medications: 11/13 23:39 Drug: Zofran (Ondansetron) 4 mg Route: IVP; Site: right antecubital; kd3 23:39 Drug: fentaNYL (PF) 50 mcg Route: IVP; Site: right antecubital; kd3 23:39 Drug: NS 0.9% 1000 ml Route: IV; Rate: 1000 ml; Site: right antecubital; kd3 11/14 01:29 Drug: fentaNYL (PF) 50 mcg Route: IVP; Site: right antecubital; ja4 01:29 Drug: Cipro (ciprofloxacin) 500 mg Route: PO; ja4 01:32 Follow up: Response: No adverse reaction kd3 01:29 Drug: Flagyl (metroNIDAZOLE) 500 mg Route: PO; 4 :32 Follow up: Response: No adverse reaction kd3 Disposition Summary: 11/14/21 00:42 Discharge Ordered Location: Home kb Condition: Stable kb Diagnosis - Diverticulitis of intestine, part unspecified, without perforation or abscess kb without bleeding Followup: kb - With: Emergency Department - When: As needed - Reason: Worsening of condition Followup: kb - With: Private Physician - When: 2 - 3 days - Reason: Recheck today's complaints, Continuance of care, Re-evaluation by your physician Discharge Instructions: - Discharge Summary Sheet kb - Crohn's Disease kb - Diverticulitis, [id number] kb Forms: - Medication Reconciliation Form kb - Thank You Letter kb - Antibiotic Education kb - Prescription Opioid Use kb Prescriptions: - Flagyl 500 mg Oral Tablet - take 1 tablet by ORAL route every 8 hours for 10 days; 30 tablet; Refills: 0, kb Product Selection Permitted - Zofran 4 mg Oral Tablet - take 1 tablet by ORAL route every 6 hours As needed; 20 tablet; Refills: 0, kb Product Selection Permitted - Cipro 500 mg Oral Tablet - take 1 tablet by ORAL route every 12 hours for 10 days; 20 tablet; Refills: 0, kb Product Selection Permitted - Tramadol 50 mg Oral Tablet - take 1 tablet by ORAL route every 8 hours as needed; 12 tablet; Refills: 0, kb Product Selection Permitted Signatures: Dispatcher [employer] Hannah Stokes, STONE PAVER-C STONE PAVER-Ayaka Willard, RN RN Lissette Hancock, RN RN kd3 Lee Frank RN RN ja4
[2021-11-14] MEDS ORDERED: metroNIDAZOLE 500 MG TABLET ONE (01:26)
[2021-11-14] MEDS ORDERED: CIPROFLOXACIN HCL 500 MG TAB ONE (01:26)
[2021-11-14] MEDS ORDERED: FENTANYL CITR 100 MCG/2 ML ONE (01:28)
[2021-11-14 02:52] VITALS: TEMP 98
[2021-11-14 02:54] VITALS: BP 113/84; O2SAT 96
--- NOTE | 2021-11-15 11:19 | RAD REPORT ---
EXAM DESCRIPTION: CT - Abdomen Pelvis W Contrast - 11/14/2021 6:34 am CLINICAL HISTORY: 50 years Female abd pain TECHNIQUE: Contiguous axial images obtained through the abdomen and pelvis following intravenous con trast administration. Coronal and sagittal reformatted images provided. This CT exam was performed according to our departmental dose-optimization program, which includes on e or more of the following dose reduction techniques: automated exposure control, adjustment of the m A and/or kV according to patient size, and/or use of iterative reconstruction technique. COMPARISON: No prior exams provided for comparison. FINDINGS: There are acute inflammatory changes in the right mid abdomen, centered at an inflamed pro ximal transverse diverticulum. There is diffuse colonic diverticulosis. No other bowel inflammation. No bowel obstruction, pneumatosis, free intraperitoneal air, or abscess. Normal appendix. Bilateral breast implants. Mild bibasilar atelectasis. Prior cholecystectomy likely accounts for mild diffuse biliary prominence. The liver, pancreas, spleen, adrenal glands, kidneys, uterus, ovaries urinary bladder, and osseous st ructures demonstrate no acute findings. Trace free fluid in the cul-de-sac is physiologic in appearan ce. Small fat-containing umbilical hernia. IMPRESSION: Acute proximal transverse colonic diverticulitis. No bowel obstruction or perforation. Electronically signed by: Grace Addison MD 11/14/2021 12:23 AM CDT Due to temporary technical issues with the PACS/Fluency reporting system, reports are being signed by the in house radiologists without review as a courtesy to insure prompt reporting. The interpreting radiologist is fully responsible for the content of the report.
== END 2021-11-14 01:34 | disposition home or self-care (01) ==
LOC: ER 22:11
DX: K57.32 Diverticulitis of large intestine without perforation or abscess without bleeding (principal); R11.0 Nausea; Z88.0 Allergy status to penicillin; Z88.1 Allergy status to other antibiotic agents; Z88.5 Allergy status to narcotic agent; Z88.6 Allergy status to analgesic agent
CPT/HCPCS: 85025; 36415; 82565; 83690; 80053; 74177; 96375; 96374; 99284; Q9967; J3010 ×2; J7030; J2405